=== PATIENT | female | born 1995 | race African-American/Black ===

== ENCOUNTER 2016-09-19 13:45 | Emergency (ER) | payer MEDICAID ==
[~2016-09-19] VITALS: Ht 162.6 cm; Wt 63.0 kg
[~2016-09-19 13:45] MED LIST: PREN-88 PO
[2016-09-19 15:37] VITALS: BP 126/66
== END 2016-09-19 15:41 | disposition home or self-care (01) ==
LOC: ER 15:01
DX: K64.9 Unspecified hemorrhoids (principal)
CPT/HCPCS: 99282

== ENCOUNTER 2018-09-19 02:25 | Emergency (ER) | payer MEDICAID ==
[~2018-09-19] VITALS: Ht 160 cm; Wt 75.0 kg
[2018-09-19] MEDS ORDERED: MORPHINE SULFATE 4 MG/ML CPJ (NOT FOR IM USE) IV STA (03:43)
[2018-09-19] MEDS ORDERED: SODIUM CHLORIDE 0.9% 1,000 ML IV ONE (03:43)
[2018-09-19 04:12] LABS: CHLORIDE 107 mEq/L (98-107)
[2018-09-19 04:16] LABS: ETHANOL BLOOD < 10 mg/dL
[2018-09-19 04:18] LABS: HCG SCREEN NEGATIVE; HEMOGLOBIN. 12.6 g/dL (12.0-16.0); MEAN CORPUSCULAR HEMOGLOBIN 30.8 pg (28.0-32.0); MEAN CORPUSCULAR VOLUME 87.9 fL (81.0-99.0); MEAN PLATELET VOLUME 8.2 fl (7.4-10.4); PLATELET 232 x1000/uL (130-400); RED BLOOD CELL COUNT 4.09 mill/uL (4.2-5.4); RED CELL DISTRIBUTION WIDTH 14.7 % (11.6-14.6)
[2018-09-19 04:21] LABS: INR 1.1; PROTHROMBIN TIME 11.2 sec (9.6-11.0)
[2018-09-19 05:01] LABS: PLATELET ESTIMATE NORMAL
[2018-09-19] MEDS ORDERED: KETOROLAC 30MG/ML VIAL IV STA (05:02)
[2018-09-19 05:42] LABS: CLARITY URINE CLEAR (CLEAR); COLOR URINE YELLOW (YELLOW); KETONES URINE 3+ (NEGATIVE); LEUKOCYTE ESTERASE URINE 1+ (NEGATIVE); NITRITE URINE NEGATIVE (NEGATIVE); OCCULT BLOOD URINE NEGATIVE (NEGATIVE); PH URINE 8.5 (4.5-8.0); PROTEIN URINE 1+ (NEGATIVE)
[2018-09-19] MEDS ORDERED: IOHEXOL-300 100 ML BOTTLE ONE (05:54)
[2018-09-19] MEDS ORDERED: HYDROCODONE/ACETAMINOPHEN 5/325MG TABLET PO ONE (09:30)
[2018-09-19] MEDS ORDERED: AZITHROMYCIN 500 MG TABLET PO ONE (11:30)
[2018-09-19] MEDS ORDERED: CEFTRIAXONE SODIUM 250 MG/VIAL IM ONE (11:30)
[2018-09-19] MEDS ORDERED: LIDOCAINE HCL 1% 20ML VIAL (Pyxis) INJ INFIL ONE (11:30)
[2018-09-19 11:49] VITALS: BP 122/65
[2018-09-21 04:21] LABS: CHLAMYDIA TRACHOMATIS NAA Positive (Negative); NEISSERIA GONORRHOEAE NAA Positive (Negative)
== END 2018-09-19 11:52 | disposition home or self-care (01) ==
LOC: ER 03:58
DX: R10.32 Left lower quadrant pain (principal)
CPT/HCPCS: 36415; 74177; 76830; 76856; 80053; 80320; 81003; 81025; 83690; 84703; 85025; 85610; 87210; 87491; 87591; 96372; 96374; 96375; 99284; J0696; J1885; J2270; J7030; Q9967; J3490; G0480